=== PATIENT | female | born 1995 | race Two or more races ===

== ENCOUNTER 2016-12-13 04:50 | Observation (INO) | payer MEDICAID, OTHER ==
[~2016-12-13] VITALS: Ht 152.4 cm; Wt 67.1 kg
[2016-12-13 06:42] LABS: Urine Bilirubin Negative (Negative); Urine Blood Negative /uL (Negative); Urine Color Yellow (Yellow); Urine Glucose Normal (Normal); Urine Ketone Negative (Negative); Urine Mucus FEW (None Seen); Urine Nitrite Negative (Negative); Urine RBC 1 /hpf (0 - 4); Urine Squamous Epithelial Cell MANY /hpf (<5)
[2016-12-13] MEDS ORDERED: TERBUTALINE SULFATE 1 MG/ML 1ML VIAL SC ONE ×2 (07:30→07:45)
== END 2016-12-13 08:40 | disposition home or self-care (01) | DRG 566 ==
LOC: LDRP 04:50
PROVIDERS: ADMIT Obstetrics & Gynecology; ATTEND Obstetrics & Gynecology
DX: O62.9 Abnormality of forces of labor, unspecified (principal); Z3A.00 Weeks of gestation of pregnancy not specified
CPT/HCPCS: 59025; 80307; 81001; 81002; 87086; G0378; J3105; 96361; 96366

== ENCOUNTER 2016-12-27 08:00 | Observation (INO) | payer MEDICAID ==
[~2016-12-27] VITALS: Ht 152.4 cm; Wt 68.9 kg
[2016-12-27] MEDS ORDERED: LACTATED RINGER'S 1,000 ML IV ONE (09:15)
[2016-12-27] MEDS ORDERED: NALBUPHINE HCL 10 MG/1ml INJECTION IV ONE (10:00)
[2016-12-27 10:17] LABS: Basophils # (auto) 0 uL; Basophils % (auto) 0.4 % (0.0-2.0); DEFINITIVE VIEW TRANSMISSION; Eosinophils # (auto) 0.1 uL; Eosinophils % (auto) 0.7 % (0.0-7.0); Hemoglobin 10.1 g/dL (12.2-16.2); Lymphocytes # (auto) 1.3 uL; Lymphocytes % (auto) 15.7 % (10.0-50.0); Mean Corpuscular Hgb Conc. 31.6 g/dL (32.0-36.0); Mean Corpuscular Volume 75.7 fL (80.0-100.0); Mean Platelet Volume 8.2 fL (7.4-10.4); Monocytes # (auto) 0.5 uL; Monocytes % (auto) 6.8 % (0.0-12.0); Neutrophils # (auto) 6.2 uL; Neutrophils % (auto) 76.4 % (37.0-80.0); Platelet Count (auto) 243 10^3/uL (140-450); Red Cell Distribution Width 15.7 % (11.6-16.0); SUSPECT VIEW TRANSMISSION; White Blood Cell 8.1 10^3/uL (4.4-10.8)
[2016-12-27 10:59] LABS: INR 0.92 (0.9-1.15); Partial Thromboplastin Time 26.6 sec (22.64-33.71); Prothrombin Time 9.9 sec (9.37-12.3)
[2016-12-27 11:05] LABS: Albumin 2.4 g/dL (3.4-5.0); Bilirubin, Total 0.4 mg/dL (0.2-1.0); Calcium 8.2 mg/dL (8.5-10.1); Potassium 3.7 mmol/L (3.5-5.1); Total Protein 6.6 g/dL (6.4-8.2)
[2016-12-27 12:48] LABS: Urine Bilirubin Negative (Negative); Urine Blood Negative /uL (Negative); Urine Color Yellow (Yellow); Urine Glucose Normal (Normal); Urine Ketone Negative (Negative); Urine Mucus FEW (None Seen); Urine Nitrite Negative (Negative); Urine RBC 3 /hpf (0 - 4); Urine Squamous Epithelial Cell MOD /hpf (<5); Urine Urobilinogen Normal (Negative)
== END 2016-12-27 19:03 | disposition home or self-care (01) | DRG 566 ==
LOC: LDRP 08:00
PROVIDERS: ADMIT Obstetrics & Gynecology; ATTEND Obstetrics & Gynecology
DX: O62.9 Abnormality of forces of labor, unspecified (principal); Z87.891 Personal history of nicotine dependence; Z3A.37 37 weeks gestation of pregnancy
CPT/HCPCS: 36415; 59025; 76805; 76818; 80053; 80307; 81001; 81002; 85025; 85610; 85730; 86850; 86900; 86901; 96361; 96374; G0378; J2300; 96365; 96366

== ENCOUNTER 2016-12-30 10:30 | Observation (INO) | payer MEDICAID ==
[~2016-12-30] VITALS: Ht 152.4 cm; Wt 64.9 kg
[2016-12-30 11:43] LABS: Urine Bilirubin Negative (Negative); Urine Blood Negative /uL (Negative); Urine Color Yellow (Yellow); Urine Glucose Normal (Normal); Urine Ketone Negative (Negative); Urine Nitrite Negative (Negative); Urine RBC 2 /hpf (0 - 4); Urine Squamous Epithelial Cell MOD /hpf (<5); Urine Urobilinogen Normal (Negative); Urine pH 7.5 (5.0-8.0)
[2016-12-30] MEDS ORDERED: SODIUM CHLORIDE 0.9% 1,000 ML IV ONE (12:00)
[2016-12-30] MEDS ORDERED: cefTRIAXone 1GM/50ML D5W 50 ML IV ONE (12:00)
== END 2016-12-30 14:35 | disposition home or self-care (01) | DRG 566 ==
LOC: LDRP 10:30
PROVIDERS: ADMIT Specialist; ATTEND Specialist
DX: O62.9 Abnormality of forces of labor, unspecified (principal); O23.43 Unspecified infection of urinary tract in pregnancy, third trimester; Z87.891 Personal history of nicotine dependence; Z3A.37 37 weeks gestation of pregnancy
CPT/HCPCS: 59025; 81001; 81002; 96365; G0378; J0696; J7030; 96366

== ENCOUNTER 2017-01-01 14:50 | Inpatient (IN) | payer MEDICAID ==
[~2017-01-01] VITALS: Ht 30.5 cm; Wt 0.5 kg
[2017-01-01] MEDS: LACTATED RINGER'S 1,000 ML IV SCH (09:45)
[2017-01-01] MEDS ORDERED: ACETAMINOPHEN/CODEINE#3 (300/30mg) TAB PO ONE (15:30)
[2017-01-01 18:46] LABS: Basophils # (auto) 0 uL; Basophils % (auto) 0.4 % (0.0-2.0); DEFINITIVE VIEW TRANSMISSION; Eosinophils # (auto) 0.1 uL; Eosinophils % (auto) 0.5 % (0.0-7.0); Hematocrit 29.7 % (36.0-46.0); Hemoglobin 9.6 g/dL (12.2-16.2); Lymphocytes # (auto) 1.9 uL; Lymphocytes % (auto) 19.8 % (10.0-50.0); Mean Corpuscular Hemoglobin 24.6 pg (28.0-32.0); Mean Corpuscular Hgb Conc. 32.3 g/dL (32.0-36.0); Mean Corpuscular Volume 76.2 fL (80.0-100.0); Mean Platelet Volume 8.4 fL (7.4-10.4); Monocytes # (auto) 0.7 uL; Neutrophils # (auto) 7.1 uL; Neutrophils % (auto) 72.3 % (37.0-80.0); Platelet Count (auto) 267 10^3/uL (140-450); White Blood Cell 9.8 10^3/uL (4.4-10.8)
[2017-01-01 19:04] LABS: Albumin 2.4 g/dL (3.4-5.0); Calcium 8.2 mg/dL (8.5-10.1); Potassium 3.6 mmol/L (3.5-5.1)
[2017-01-01 19:06] LABS: BUN/Creatinine Ratio 13.5
[2017-01-01 19:08] LABS: INR 0.93 (0.9-1.15); Partial Thromboplastin Time 27.1 sec (22.64-33.71)
[2017-01-01 19:09] LABS: Bilirubin, Total 0.4 mg/dL (0.2-1.0); Total Protein 6.4 g/dL (6.4-8.2)
[2017-01-01 20:23] LABS: Urine RBC None Seen /hpf (0 - 4)
[2017-01-01 20:34] LABS: Urine Bilirubin Negative (Negative); Urine Blood Negative /uL (Negative); Urine Color Colorless (Yellow); Urine Glucose Normal (Normal); Urine Nitrite Negative (Negative); Urine Squamous Epithelial Cell FEW /hpf (<5); Urine Urobilinogen Normal (Negative); Urine pH 6.5 (5.0-8.0)
[2017-01-01 20:59] LABS: Urine Ketone 1+ (Negative)
[2017-01-01] MEDS ORDERED: LACT. RINGERS/OXYTOCIN 20UNITS 1,000 ML IV SCH (21:33)
[2017-01-01] MEDS ORDERED: LIDOCAINE 2%HCL (LOCAL ANESTH.) INJ 20ML MDV IJ ONE ×2 (21:45)
[2017-01-01] MEDS ORDERED: METHYLERGONOVINE MALEATE 0.2 MG/ML AMP IM PRN (21:45)
[2017-01-01] MEDS ORDERED: PHISODERM TOP SOLN 240ML BTL TOP PRN (21:45)
[2017-01-01] MEDS ORDERED: CARBOPROST TROMETHAMINE 250 MCG/1ML VIAL IM PRN (21:45)
[2017-01-01] MEDS ORDERED: WITCH HAZEL-GLYCERIN PAD TOP PRN (21:45)
[2017-01-01] MEDS ORDERED: PROMETHAZINE HCL 25 MG/ML 1ML ONE (23:01)
[2017-01-01] MEDS ORDERED: DERMOPLAST 60ML BOTTLE TOP ONE (23:01)
[2017-01-01] MEDS: NALBUPHINE HCL 10 MG/1ml INJECTION IV PRN (23:19)
[2017-01-02] MEDS ORDERED: fentaNYL CITRATE 100 MCG/2 ML VL IV ONE (01:15)
[2017-01-02] MEDS ORDERED: ePHEDrine SULFATE 50 MG/ML AMP IV ONE ×2 (01:15)
[2017-01-02] MEDS ORDERED: NALOXONE HCL 0.4 MG/ML VIAL IV ONE ×2 (01:15)
[2017-01-02] MEDS ORDERED: fentaNYL W ROPIVACAINE 150 ML EPI SCH (01:15)
[2017-01-02] MEDS ORDERED: LIDOCAINE HCL 2 %PF INJ 10ML AMP IJ ONE (01:15)
[2017-01-02] MEDS ORDERED: PROMETHAZINE HCL 25 MG/ML 1ML ONE (03:03)
[2017-01-02] MEDS: NALBUPHINE HCL 10 MG/1ml INJECTION IV PRN ×2 (03:15→05:48)
[2017-01-02] MEDS ORDERED: PROMETHAZINE HCL 25 MG/ML 1ML IV PRN (03:15)
[2017-01-02] MEDS ORDERED: IBUPROFEN 600 MG TAB PO ONE (06:58)
[2017-01-02] MEDS: ACETAMINOPHEN 325 MG TAB PO PRN ×2 (08:25→17:35)
[2017-01-02] MEDS: LACTATED RINGER'S 1,000 ML IV SCH ×3 (10:02→18:02)
[2017-01-02] MEDS ORDERED: NALBUPHINE HCL 10 MG/1ml INJECTION ONE (10:05)
[2017-01-02 12:04] VITALS: BP 96/55
[2017-01-02 12:49] LABS: Basophils # (auto) 0 uL; Basophils % (auto) 0.1 % (0.0-2.0); DEFINITIVE VIEW TRANSMISSION; Eosinophils # (auto) 0 uL; Hemoglobin 8.1 g/dL (12.2-16.2); Lymphocytes # (auto) 1.3 uL; Lymphocytes % (auto) 7.5 % (10.0-50.0); Mean Corpuscular Hemoglobin 24.6 pg (28.0-32.0); Mean Corpuscular Hgb Conc. 32.5 g/dL (32.0-36.0); Mean Corpuscular Volume 75.6 fL (80.0-100.0); Mean Platelet Volume 8.4 fL (7.4-10.4); Monocytes # (auto) 1.1 uL; Monocytes % (auto) 6.5 % (0.0-12.0); Neutrophils # (auto) 14.4 uL; Neutrophils % (auto) 85.9 % (37.0-80.0); Platelet Count (auto) 239 10^3/uL (140-450); White Blood Cell 16.7 10^3/uL (4.4-10.8)
[2017-01-02] MEDS: IBUPROFEN 600 MG TAB PO PRN ×2 (15:22→22:40)
[2017-01-02 16:06] VITALS: BP 103/52
[2017-01-02 19:15] VITALS: BP 99/59
[2017-01-02] MEDS ORDERED: AMMONIA 0.33 ML INHALANT IN ONE (22:15)
[2017-01-02 22:30] VITALS: BP 97/59
[2017-01-03] VITALS (12 sets, daily range): BP systolic 82–116; BP diastolic 50–72
[2017-01-03] MEDS: LACTATED RINGER'S 1,000 ML IV SCH ×2 (02:02→10:02)
[2017-01-03] MEDS: IBUPROFEN 600 MG TAB PO PRN ×3 (03:24→22:05)
[2017-01-03] MEDS ORDERED: PRENATAL VITAMIN TAB PO ONE (05:45)
[2017-01-03 07:30] LABS: Basophils # (auto) 0.1 uL; Basophils % (auto) 0.9 % (0.0-2.0); DEFINITIVE VIEW TRANSMISSION; Eosinophils # (auto) 0.1 uL; Eosinophils % (auto) 0.5 % (0.0-7.0); Hematocrit 18.4 % (36.0-46.0); Lymphocytes # (auto) 1.8 uL; Lymphocytes % (auto) 17.4 % (10.0-50.0); Mean Corpuscular Hemoglobin 24.8 pg (28.0-32.0); Mean Corpuscular Hgb Conc. 32.6 g/dL (32.0-36.0); Mean Corpuscular Volume 75.9 fL (80.0-100.0); Mean Platelet Volume 8.7 fL (7.4-10.4); Monocytes # (auto) 0.6 uL; Monocytes % (auto) 5.8 % (0.0-12.0); Neutrophils # (auto) 7.7 uL; Neutrophils % (auto) 75.4 % (37.0-80.0); Platelet Count (auto) 181 10^3/uL (140-450); Red Cell Distribution Width 17.2 % (11.6-16.0); White Blood Cell 10.2 10^3/uL (4.4-10.8)
[2017-01-03] MEDS: FERROUS SULFATE 325 MG TAB PO SCH ×2 (08:00→17:47)
[2017-01-03] MEDS: ACETAMINOPHEN 325 MG TAB PO PRN (12:50)
[2017-01-04 03:30] VITALS: BP 93/52
[2017-01-04] MEDS: IBUPROFEN 600 MG TAB PO PRN (06:05)
[2017-01-04 06:08] LABS: Basophils # (auto) 0 uL; Basophils % (auto) 0.4 % (0.0-2.0); DEFINITIVE VIEW TRANSMISSION; Eosinophils # (auto) 0.2 uL; Eosinophils % (auto) 1.8 % (0.0-7.0); Hematocrit 27.8 % (36.0-46.0); Hemoglobin 9.2 g/dL (12.2-16.2); Lymphocytes # (auto) 2.5 uL; Lymphocytes % (auto) 23.1 % (10.0-50.0); Mean Corpuscular Hemoglobin 26.6 pg (28.0-32.0); Mean Corpuscular Hgb Conc. 33.2 g/dL (32.0-36.0); Mean Corpuscular Volume 80.4 fL (80.0-100.0); Mean Platelet Volume 8.2 fL (7.4-10.4); Monocytes # (auto) 0.6 uL; Monocytes % (auto) 5.3 % (0.0-12.0); Neutrophils # (auto) 7.4 uL; Neutrophils % (auto) 69.4 % (37.0-80.0); Platelet Count (auto) 240 10^3/uL (140-450); Red Cell Distribution Width 18.3 % (11.6-16.0); White Blood Cell 10.7 10^3/uL (4.4-10.8)
[2017-01-04 08:00] VITALS: BP 104/57
[2017-01-04] MEDS: FERROUS SULFATE 325 MG TAB PO SCH (08:00)
[2017-01-04 12:00] VITALS: BP 106/53
== END 2017-01-04 13:00 | disposition home or self-care (01) | DRG 560 ==
LOC: LDRP 14:50 → OBSVTOIN 14:50
PROVIDERS: ADMIT Specialist; ATTEND Specialist
PROC: 10E0XZZ Delivery of Products of Conception, External Approach (ICD-10-PCS; principal; 2017-01-02)
PROC: 10907ZC Drainage of Amniotic Fluid, Therapeutic from Products of Conception, Via Natural or Artificial Opening (ICD-10-PCS; 2017-01-02)
PROC: 30233N1 Transfusion of Nonautologous Red Blood Cells into Peripheral Vein, Percutaneous Approach (ICD-10-PCS; 2017-01-03)
DX: O76 Abnormality in fetal heart rate and rhythm complicating labor and delivery (principal); O72.1 Other immediate postpartum hemorrhage; Z91.018 Allergy to other foods; Z37.0 Single live birth; Z3A.37 37 weeks gestation of pregnancy
CPT/HCPCS: 36415; 36430; 59025; 59409; 76818; 80053; 80307; 81001; 85025; 85610; 85730; 86850; 86900; 86901; 86920; 96361; 96366; 96374; 96375; J2590; J3010

== ENCOUNTER 2020-03-31 16:05 | Emergency (ER) | payer MEDICAID ==
[~2020-03-31] VITALS: Ht 154.9 cm; Wt 65.8 kg
[2020-03-31 16:15] VITALS: BP 95/50
[2020-03-31] MEDS ORDERED: ACETAMINOPHEN 500 MG TAB PO ONE (17:30)
== END 2020-03-31 17:54 | disposition home or self-care (01) ==
LOC: ER 16:05
DX: O26.891 Other specified pregnancy related conditions, first trimester (principal); M54.42 Lumbago with sciatica, left side; O99.511 Diseases of the respiratory system complicating pregnancy, first trimester; J45.909 Unspecified asthma, uncomplicated; Z3A.11 11 weeks gestation of pregnancy

== ENCOUNTER 2020-05-01 20:57 | Emergency (ER) | payer MEDICAID ==
[~2020-05-01] VITALS: Ht 152.4 cm; Wt 64.0 kg
[2020-05-01 22:04] LABS: Albumin 3.4 g/dL (3.4-5.0); Potassium 3.3 mmol/L (3.5-5.1)
[2020-05-01 22:07] LABS: BUN/Creatinine Ratio 8.3; Bilirubin, Total 0.6 mg/dL (0.2-1.0); Total Protein 7.8 g/dL (6.4-8.2)
[2020-05-01 22:14] LABS: Basophils # (auto) 0 10 ^3/uL (0-0.2); Basophils % (auto) 0.1 % (0.0-2.0); Eosinophils # (auto) 0 10 ^3/uL (0-0.8); Eosinophils % (auto) 0.4 % (0.0-7.0); Hematocrit 39.5 % (36.0-46.0); Hemoglobin 13.3 g/dL (12.2-16.2); Lymphocytes # (auto) 1.1 10 ^3/uL (0.4-5.4); Lymphocytes % (auto) 9.8 % (10.0-50.0); Mean Corpuscular Hemoglobin 29.6 pg (28.0-32.0); Mean Corpuscular Hgb Conc. 33.8 g/dL (32.0-36.0); Mean Corpuscular Volume 87.6 fL (80.0-100.0); Monocytes # (auto) 0.7 10 ^3/uL (0-1.3); Monocytes % (auto) 6.3 % (0.0-12.0); Neutrophils # (auto) 9.4 10 ^3/uL (1.6-8.6); Neutrophils % (auto) 83.4 % (37.0-80.0); Platelet Count (auto) 204 10^3/uL (140-450); Red Blood Cells 4.51 10^6/uL (4.0-5.20); Red Cell Distribution Width 13.6 % (11.8-14.3); White Blood Cell 11.3 10^3/uL (4.4-10.8)
[2020-05-01] MEDS ORDERED: SODIUM CHLORIDE 0.9% 1,000 ML IV ONE (23:00)
[2020-05-02] MEDS ORDERED: ACETAMINOPHEN 500 MG TAB PO ONE (00:30)
[2020-05-02] MEDS: ONDANSETRON HCL 4 MG/2 ML VIAL IV ONE ×2 (00:39→01:29)
[2020-05-02 01:00] LABS: Urine Bacteria FEW /hpf (None Seen); Urine Blood Negative /uL (Negative); Urine Specific Gravity 1.005 (1.001-1.035); Urine WBC 2 /hpf (0 - 5)
[2020-05-02] MEDS ORDERED: SODIUM CHLORIDE 0.9% 1,000 ML IV ONE (01:30)
[2020-05-02 02:00] VITALS: BP 97/47
== END 2020-05-02 02:40 | disposition home or self-care (01) ==
LOC: ER 21:04
DX: O23.42 Unspecified infection of urinary tract in pregnancy, second trimester (principal); O21.9 Vomiting of pregnancy, unspecified; Z3A.15 15 weeks gestation of pregnancy
CPT/HCPCS: 36415; 76805; 80053; 81001; 82150; 83690; 84702; 85025; 96361; 96374; 99284; J2405; J7030

== ENCOUNTER 2020-06-30 15:31 | Inpatient (IN) | payer MEDICAID ==
[~2020-06-30] VITALS: Ht 152.4 cm; Wt 63.5 kg
[2020-06-30 15:50] VITALS: BP 113/70
[2020-06-30] MEDS ORDERED: ACETAMINOPHEN 325 MG TAB PO ONE (16:15)
[2020-06-30] MEDS ORDERED: LACTATED RINGER'S 1,000 ML IV ONE (17:00)
[2020-06-30 18:35] LABS: Urine Bacteria MOD /hpf (None Seen); Urine Blood Negative /uL (Negative); Urine Specific Gravity 1.016 (1.001-1.035); Urine WBC 79 /hpf (0 - 5)
[2020-06-30 18:42] LABS: Alcohol, Urine < 3.0 mg/dL (0-10); Amphetamine Screen, Urine NEGATIVE (NEGATIVE); Barbiturate Scree,Urine NEGATIVE (NEGATIVE); Benzodiazephine Screen, Urine NEGATIVE (NEGATIVE); Cannabinoid Screen, Urine NEGATIVE (NEGATIVE); Cocaine Screen, Urine NEGATIVE (NEGATIVE); Opiate Scree,Urine NEGATIVE (NEGATIVE); Phencyclidine Screen, Urine NEGATIVE (NEGATIVE)
[2020-06-30] MEDS ORDERED: NIFEdipine 10 MG CAP PO ONE (18:45)
[2020-06-30] MEDS ORDERED: MEPERIDINE HCL (50 MG/ML) 1 ML VIAL IV PRN (20:30)
[2020-06-30] MEDS ORDERED: MAGNESIUM SULFATE 100 ML IV ONE (20:30)
[2020-06-30] MEDS ORDERED: CEFTRIAXONE SODIUM 2 GM in D5W 5% 50 ML IV ONE (20:30)
[2020-06-30] MEDS ORDERED: BETAMETHASONE ACET (6MG/ML) 5ML VIAL IM SCH (21:00)
[2020-06-30] MEDS: MAGNESIUM SULFATE 40MG/ML 1,000 ML IV SCH ×2 (22:05→22:29)
[2020-06-30 23:02] LABS: Potassium 3.5 mmol/L (3.5-5.1)
[2020-06-30 23:09] LABS: Albumin 2.5 g/dL (3.4-5.0); Bilirubin, Total 0.6 mg/dL (0.2-1.0); Calcium 7.9 mg/dL (8.5-10.1); Total Protein 5.9 g/dL (6.4-8.2)
[2020-07-01 00:13] LABS: Basophils # (auto) 0 10 ^3/uL (0-0.2); Basophils % (auto) 0.2 % (0.0-2.0); Eosinophils # (auto) 0 10 ^3/uL (0-0.8); Eosinophils % (auto) 0.1 % (0.0-7.0); Hematocrit 35.3 % (36.0-46.0); Hemoglobin 11.9 g/dL (12.2-16.2); Lymphocytes % (auto) 6.1 % (10.0-50.0); Mean Corpuscular Hemoglobin 29.4 pg (28.0-32.0); Mean Corpuscular Hgb Conc. 33.8 g/dL (32.0-36.0); Mean Corpuscular Volume 86.9 fL (80.0-100.0); Neutrophils # (auto) 15.1 10 ^3/uL (1.6-8.6); Neutrophils % (auto) 87.6 % (37.0-80.0); Nucleated Red Blood Cells % 0.1 %; Platelet Count (auto) 170 10^3/uL (140-450); Red Blood Cells 4.06 10^6/uL (4.0-5.20); Red Cell Distribution Width 14.1 % (11.8-14.3); White Blood Cell 17.3 10^3/uL (4.4-10.8)
[2020-07-01 00:27] LABS: INR 0.92 (0.9-1.15); Partial Thromboplastin Time 26.8 sec (23.0-31.2)
[2020-07-01] MEDS: ONDANSETRON HCL 4 MG/2 ML VIAL IV PRN (01:17)
[2020-07-01] MEDS ORDERED: MAGNESIUM SULFATE 40MG/ML 1,000 ML IV SCH (03:15)
[2020-07-01] MEDS ORDERED: AZITHROMYCIN 500MG/ 250ML 250 ML IV SCH (04:00)
[2020-07-01] MEDS: LACTATED RINGER'S 1,000 ML IV SCH ×4 (06:53→16:12)
[2020-07-01] MEDS ORDERED: cefTRIAXone 1GM/50ML D5W 50 ML IV SCH ×2 (09:00→22:00)
[2020-07-01] MEDS ORDERED: TERBUTALINE SULFATE 1 MG/ML 1ML VIAL SC PRN (09:45)
[2020-07-01] MEDS: ASCORBIC ACID 500 MG TAB PO SCH (10:00)
[2020-07-01] MEDS: ZINC SULFATE 220mg CAP or TAB PO SCH (10:02)
[2020-07-01] MEDS ORDERED: ACETAMINOPHEN 325 MG TAB PO PRN (20:30)
[2020-07-01] MEDS ORDERED: FAMOTIDINE 20 MG TAB ONE (21:30)
[2020-07-01] MEDS: FAMOTIDINE 20 MG TAB PO SCH (21:42)
[2020-07-01] MEDS ORDERED: BETAMETHASONE ACET (6MG/ML) 5ML VIAL IM ONE (22:00)
[2020-07-02] MEDS: LACTATED RINGER'S 1,000 ML IV SCH (02:11)
[2020-07-02] MEDS ORDERED: AZITHROMYCIN 500MG/ 250ML 250 ML IV ONE (03:48)
[2020-07-02] MEDS: AZITHROMYCIN 500MG/ 250ML 250 ML IV SCH ×2 (04:06→10:00)
[2020-07-02] MEDS: ONDANSETRON HCL 4 MG/2 ML VIAL IV PRN (06:39)
[2020-07-02 07:42] LABS: Basophils # (auto) 0 10 ^3/uL (0-0.2); Basophils % (auto) 0.1 % (0.0-2.0); Eosinophils # (auto) 0 10 ^3/uL (0-0.8); Hematocrit 35.4 % (36.0-46.0); Hemoglobin 11.7 g/dL (12.2-16.2); Lymphocytes # (auto) 1.2 10 ^3/uL (0.4-5.4); Lymphocytes % (auto) 7.2 % (10.0-50.0); Mean Corpuscular Hemoglobin 29.8 pg (28.0-32.0); Monocytes # (auto) 0.5 10 ^3/uL (0-1.3); Monocytes % (auto) 2.8 % (0.0-12.0); Neutrophils # (auto) 15.4 10 ^3/uL (1.6-8.6); Neutrophils % (auto) 89.9 % (37.0-80.0); Platelet Count (auto) 178 10^3/uL (140-450); Red Blood Cells 3.93 10^6/uL (4.0-5.20); Red Cell Distribution Width 14.6 % (11.8-14.3); White Blood Cell 17.2 10^3/uL (4.4-10.8)
[2020-07-02 07:44] LABS: BUN/Creatinine Ratio 12.5
[2020-07-02] MEDS: ASCORBIC ACID 500 MG TAB PO SCH (09:41)
[2020-07-02] MEDS: FAMOTIDINE 20 MG TAB PO SCH (09:41)
[2020-07-02] MEDS: ZINC SULFATE 220mg CAP or TAB PO SCH (09:42)
[2020-07-02] MEDS ORDERED: CHOLECALCIFEROL (VITD3) 1,000UNIT=25mCg TAB PO SCH (10:00)
[2020-07-02] MEDS ORDERED: ASCO500T11 PO (13:17)
[2020-07-02] MEDS ORDERED: CHOL1000 PO (13:17)
[2020-07-02] MEDS ORDERED: DOXY-346 PO (13:17)
[2020-07-02] MEDS ORDERED: FAMO-12 PO (13:17)
== END 2020-07-02 13:55 | disposition home or self-care (01) | DRG 566 ==
LOC: ER 15:31 → LDRP 16:24 → OBSVTOIN 16:24 → LDRP 22:52
PROVIDERS: ADMIT Specialist; ATTEND Specialist
DX: O98.512 Other viral diseases complicating pregnancy, second trimester (principal); O23.42 Unspecified infection of urinary tract in pregnancy, second trimester; J45.909 Unspecified asthma, uncomplicated; O26.832 Pregnancy related renal disease, second trimester; O99.512 Diseases of the respiratory system complicating pregnancy, second trimester; O44.02 Complete placenta previa NOS or without hemorrhage, second trimester; U07.1 COVID-19; O60.02 Preterm labor without delivery, second trimester; Z3A.24 24 weeks gestation of pregnancy; Z87.440 Personal history of urinary (tract) infections; Z87.442 Personal history of urinary calculi; Z91.018 Allergy to other foods
CPT/HCPCS: 36415; 59025; 76700; 76705; 76805; 80048; 80053; 80307; 81001; 83735; 85025; 85610; 85730; 87040; 87086; 87426; 94760; 96360; 96361; 96365; 96366; 96372; 96374; 96375; G0378; J0696; J2405; J7060

== ENCOUNTER 2020-09-16 22:05 | Observation (INO) | payer MEDICAID ==
[~2020-09-16 22:05] MED LIST: ASCO500T11 PO; CHOL1000 PO; DOXY-346 PO; FAMO-12 PO
[2020-09-16] MEDS ORDERED: LACTATED RINGER'S 1,000 ML IV ONE (22:30)
[2020-09-16] MEDS ORDERED: TERBUTALINE SULFATE 1 MG/ML 1ML VIAL SC SCH (22:30)
[2020-09-16] MEDS ORDERED: BETAMETHASONE ACET (6MG/ML) 5ML VIAL ONE (22:31)
[2020-09-16] MEDS ORDERED: TERBUTALINE SULFATE 1 MG/ML 1ML VIAL SC ONE (22:32)
[2020-09-16] MEDS: BETAMETHASONE ACET (6MG/ML) 5ML VIAL IM SCH ×2 (22:50→23:12)
[2020-09-16] MEDS ORDERED: NIFEdipine 10 MG CAP PO ONE (23:30)
[2020-09-16] MEDS ORDERED: NIFEdipine 10 MG CAP PO STA (23:34)
== END 2020-09-17 00:13 | disposition home or self-care (01) ==
LOC: LDRP 22:05
PROVIDERS: ADMIT Specialist; ATTEND Specialist
DX: O60.03 Preterm labor without delivery, third trimester (principal); O62.9 Abnormality of forces of labor, unspecified; Z3A.35 35 weeks gestation of pregnancy
CPT/HCPCS: 59025; 81002; 96360; 96372; G0378; J0702; J3105

== ENCOUNTER 2021-12-27 09:52 | Emergency (ER) | payer MEDICAID ==
[~2021-12-27] VITALS: Ht 152.4 cm; Wt 79.8 kg
[~2021-12-27 09:52] MED LIST changes: -CHOL1000 PO; +CHOL1TAB30 PO
[2021-12-27 10:03] VITALS: BP 125/78
[2021-12-27 10:34] LABS: Urine Bacteria FEW /hpf (None Seen); Urine Blood 2+ /uL (Negative); Urine Specific Gravity 1.017 (1.001-1.035); Urine WBC 9 /hpf (0 - 5)
[2021-12-27 10:58] LABS: Basophils # (auto) 0 10 ^3/uL (0-0.2); Basophils % (auto) 0.7 % (0.0-2.0); Eosinophils # (auto) 0.1 10 ^3/uL (0-0.8); Eosinophils % (auto) 1.4 % (0.0-7.0); Hematocrit 42.9 % (36.0-46.0); Hemoglobin 14.2 g/dL (12.2-16.2); Lymphocytes # (auto) 1.9 10 ^3/uL (0.4-5.4); Lymphocytes % (auto) 31.7 % (10.0-50.0); Mean Corpuscular Hemoglobin 28.7 pg (28.0-32.0); Mean Corpuscular Hgb Conc. 33.1 g/dL (32.0-36.0); Mean Corpuscular Volume 86.7 fL (80.0-100.0); Monocytes # (auto) 0.4 10 ^3/uL (0-1.3); Monocytes % (auto) 5.8 % (0.0-12.0); Neutrophils # (auto) 3.7 10 ^3/uL (1.6-8.6); Neutrophils % (auto) 60.4 % (37.0-80.0); Red Blood Cells 4.95 10^6/uL (4.0-5.20); Red Cell Distribution Width 13.1 % (11.8-14.3); White Blood Cell 6.1 10^3/uL (4.4-10.8)
[2021-12-27 11:14] LABS: BUN/Creatinine Ratio 13.7; Calcium 9.1 mg/dL (8.5-10.1)
[2021-12-27] MEDS ORDERED: HYDR50CA PO (12:51)
== END 2021-12-27 12:59 | disposition home or self-care (01) ==
LOC: ER 09:52
DX: N92.6 Irregular menstruation, unspecified (principal); F41.9 Anxiety disorder, unspecified; J45.909 Unspecified asthma, uncomplicated; Z79.899 Other long term (current) drug therapy; Z91.018 Allergy to other foods
CPT/HCPCS: 36415; 80048; 81001; 84484; 84702; 85025

== ENCOUNTER 2024-12-04 22:26 | Emergency (ER) | payer MEDICAID ==
[~2024-12-04] VITALS: Ht 152.4 cm; Wt 72.1 kg
[~2024-12-04 22:26] MED LIST changes: +HYDR50CA PO
--- NOTE | 2024-12-04 22:50 | ED.PDOC ---
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 Patient is a , unsure if she is currently . States this morning she started having vaginal bleeding, progressively worsening with clots, associated with suprapubic abdominal pain, and lower back pains Chief Complaint: Vaginal Bleed Time Seen by MD: 22:49 Reviewed Notes: Nurses Notes Allergies: Coded Allergies: Mushroom Extract Complex (Verified Allergy, Severe, 06/30/20) Uncoded Allergies: MUSHROOM (Allergy, Severe, 07/29/12) Home Meds Active Scripts Hydroxyzine Pamoate (Vistaril) 50 Mg Cap, 50 MG PO QHSP PRN, #20 CAP Prov:NEGRO HUTCHISON 12/27/21 Doxycycline (Monohydrate) (Doxycycline) 100 Mg Tab, 100 MG PO BID, #10 TAB Prov:KARON NESBITT MD 07/02/20 Famotidine (Famotidine) 20 Mg Tab, 20 MG PO Q12HR, #20 TAB Prov:KARON NESBITT MD 07/02/20 Cholecalciferol (Gnp Vitamin D) 1,000 Unit Tab, 1000 UNIT PO DAILY, #14 TAB Prov:KARON NESBITT MD 07/02/20 Ascorbic Acid (VITAMIN C TABLET) 500 Mg Tb, 500 MG PO DAILY, #14 TAB Prov:KARON NESBITT MD 07/02/20 Information Source: Patient Mode of Arrival: Ambulatory Timing: Hours Severity: Moderate Vaginal Discharge: None Vaginal Lesions: None Bleeding Quality: Bright Red, Clotted Onset Of Mass/Bleeding: Spontaneous Associated Signs and Symptoms: Vaginal Bleeding, Abdominal Pain Past Medical History PAST MEDICAL HISTORY: Anxiety, Asthma, Kidney Stones Surgical History: Denies all surgeries BACK SEWER History: No Pertinent BACK SEWER History 5 Para 4 LMP 10/20/2024 Family History Family History: Reviewed,noncontributory to illness Social History Smoker: Non-Smoker Alcohol: Denies ETOH Use Drugs: Denies Drug Use Lives In: Home Constitutional: denies: chills, diaphoresis, fatigue, fever, malaise, sweats, w eakness, others EENTM: denies: blurred vision, double vision, ear bleeding, ear discharge, ear drainage, ear pain, ear ringing, eye pain, eye redness, hearing loss, mouth pain, mouth swelling, nasal discharge, nose bleeding, nose congestion, nose pain, photophobia, tearing, throat pain, throat swelling, voice changes, others Respiratory: denies: cough, hemoptysis, orthopnea, SOB at rest, shortness of breath, SOB with excertion, stridor, wheezing, others Cardiovascular: denies: chest pain, dizzy spells, diaphoresis, Dyspnea on exertion, edema, irregular heart beat, left arm pain, lightheadedness, palpitations, PND, syncope, others Gastrointestinal: reports: abdominal pain; denies: abdomen distended, blood streaked bowels, constipated, diarrhea, dysphagia, difficulty swallowing, hematemesis, melena, nausea, poor appetite, poor fluid intake, rectal bleeding, rectal pain, vomiting, others Genitourinary: reports: abnormal vagina bleeding; denies: burning, dyspareunia, dysuria, flank pain, frequency, hematuria, incontinence, pain, , vagina discharge, urgency, others Neurological: denies: dizziness, fainting, headache, left sided numbness, left sided weakness, numbness, paresthesia, pre-existing deficit, right sided numbness, right sided weakness, seizure, speech problems, tingling, tremors, weakness, others Musculoskeletal: reports: back pain; denies: gout, joint pain, joint swelling, muscle pain, muscle stiffness, neck pain, others Integumetry: denies: bruises, change in color, change in hair/nails, dryness, laceration, lesions, lumps, rash, wounds, others Allergic/Immunocompromised: denies: Difficulty Healing, Frequent Infections, Hives, Itching, others Hematologic/Lymphatic: denies: anemia, blood clots, easy bleeding, easy bruisin g, swollen glands, others Endocrine: denies: excessive hunger, excessive sweating, excessive thirst, excessive urination, flushing, intolerance to cold, intolerance to heat, unexplained weight gain, unexplained weight loss, others Psychiatric: denies: anxiety, bipolar disorder, depression, hopeless, panic disorder, schizophrenia, sleepless, suicidal, others Physical Exam General Appearance: No Apparent Distress, Normal HEENT: Normal ENT Inspection, Pharynx Normal, TMs Normal Neck: Full Range of Motion, Non-Tender, Normal, Normal Inspection Respiratory: Chest Non-Tender, Lungs Clear, No Accessory Muscle Use, No Respir atory Distress, Normal Breath Sounds Cardiovascular: No Edema, No JVD, No Murmur, No Gallop, Normal Peripheral Pulses, Regular Rate/Rhythm Breast Exam: Deferred Gastrointestinal: No Organomegaly, Non Tender, No Pulsatile Mass, Normal Bowel Sounds, Soft Genitalia: Deferred Pelvic: Deferred Rectal: Deferred Extremities: No calf tenderness, Normal capillary refill, Normal inspection, Normal range of motion, Non-tender, No pedal edema Musculoskeletal : Apperance: Normal Neurologic: Alert, restaurant associate II-XII nml as Tested, No Motor Deficits, Normal Affect, Normal Mood, No Sensory Deficits Cerebellar Function: Normal Reflexes: Normal Skin: Dry, Normal Color, Warm Lymphatic: No Adenopathy Was a procedure done? Was a procedure done?: No Differential Diagnosis (BACK SEWER) Vaginal Bleeding: - Inevitable, - Missed, - Threatened, Blood Loss Anemia, Menstrual Bleeding, UTI X-Ray, Labs, Meds, VS Vital Signs Date Time Temp Pulse Resp B/P (MAP) Pulse Ox O2 Delivery O2 Flow Rate FiO2 12/04/24 22:40 98.3 86 18 108/84 (92) 97 98.3 Lab Test 12/04/24 22:50 12/04/24 22:40 Range/Units White Blood Count 7.3 4.4-10.8 10^3/uL Red Blood Count 4.74 4.0-5.20 10^6/uL Hemoglobin 14.2 12.2-16.2 g/dL Hematocrit 41.5 36.0-46.0 % Mean Corpuscular Volume 87.5 80.0-100.0 fL Mean Corpuscular Hemoglobin 29.9 28.0-32.0 pg Mean Corpuscular Hemoglobin Concent 34.1 32.0-36.0 g/dL Red Cell Distribution Width 13.7 11.8-14.3 % Platelet Count 206 140-450 10^3/uL Mean Platelet Volume 8.8 6.9-10.8 fL Neutrophils (%) (Auto) 57.5 37.0-80.0 % Lymphocytes (%) (Auto) 33.1 10.0-50.0 % Monocytes (%) (Auto) 6.6 0.0-12.0 % Eosinophils (%) (Auto) 2.3 0.0-7.0 % Basophils (%) (Auto) 0.5 0.0-2.0 % Neutrophils # (Auto) 4.2 1.6-8.6 10 ^3/uL Lymphocytes # (Auto) 2.4 0.4-5.4 10 ^3/uL Monocytes # (Auto) 0.5 0-1.3 10 ^3/uL Eosinophils # (Auto) 0.2 0-0.8 10 ^3/uL Basophils # (Auto) 0 0-0.2 10 ^3/uL Nucleated Red Blood Cells 0.1 % Sodium Level 139 136-145 mmol/L Potassium Level 3.7 3.5-5.1 mmol/L Chloride Level 105 98-107 mmol/L Carbon Dioxide Level 27 20-31 mmol/L Anion Gap 7 5-15 Blood Urea Nitrogen 13 9-23 mg/dL Creatinine 0.92 0.550-1.02 mg/dL Glomerular Filtration Rate Calc 86 >90 mL/min BUN/Creatinine Ratio 14.1 10.0-20.0 Serum Glucose 122 H 74-106 mg/dL Calcium Level 9.8 8.7-10.4 mg/dL Urine Color Straw Yellow Urine Clarity Turbid H Clear Urine pH 5.5 5.0-9.0 Urine Specific [place] 1.025 1.001-1.035 Urine Protein Trace H Negative Urine Ketones Negative Negative Urine Blood 3+ H Negative /uL Urine Nitrite Negative Negative Urine Bilirubin Negative Negative Urine Urobilinogen Normal Negative mg/dL Urine Leukocyte Esterase Negative Negative /uL Urine RBC 1715 0 - 4 /hpf Urine Microscopic WBC 2 0-5 /HPF Urine Squamous Epithelial Cells Few <5 /hpf Urine Bacteria Few H None Seen /hpf Urine Mucus Few None Seen Urine Yeast (Budding) Occasional None Seen /hpf Urine Glucose Normal Normal mg/dL Urine Test Negative Negative Time of 1ST Reevaluation: 22:44 Reevaluation 1ST: Unchanged Patient Education/Counseling: Diagnosis, Treatment Family Education/Counseling: No Family Present Departure 1 Departure Time of Disposition: 01:15 (Patient presented with abdominal pain that was concerning for possible appendicits, gastritis, cholecystitis, colitis, gastroenteritis, or orther possible surgical emergency. Data: 1. I ordered and reviewed the result of at least 3 labs including a CBC, BMP, and Urinalysis. 2. I independently interpreted the following tests: CT Abdoment and Pelvis is concerning for benign abdomen .Risk:This patient has a high risk of morbidity due to further diagnostic testing or treatment and may suffer from an acute abdominal process disorder. Fortunately workup reveals benign abdomen and patient can be safely discharged to home with outpatient follow up.) Impression: Primary Impression: Vagina bleeding Disposition: HOME / SELF CARE / HOMELESS Condition: Stable Referrals: FERNANDO MORA DO Additional Instructions: Your workup today was benign. You were referred to OBGYN. Please call for an appointment. You can take tylenol and motrin as needed for pain. If your symptoms worsen or you have any other concerns then please return to the ER. Discharged With: Self Critical Care Note Critical Care Time?: No Stability Stability form required: No Heart Score Heart Score: Heart Score Response (Comments) Value History N/A 0 EKG N/A 0 Age N/A 0 Risk Factors N/A 0 Troponin N/A 0 Total 0 I personally scribed for TEE ZAPATA MD ([email or web address]) on 12/04/24 at 22:50. Electronically submitted by Cristi Thacker ([email or web address]). TEE ZAPATA MD Dec 04, 2024 22:50
[2024-12-04 23:15] LABS: Basophils # (auto) 0 10 ^3/uL (0-0.2); Basophils % (auto) 0.5 % (0.0-2.0); Eosinophils # (auto) 0.2 10 ^3/uL (0-0.8); Eosinophils % (auto) 2.3 % (0.0-7.0); Hematocrit 41.5 % (36.0-46.0); Hemoglobin 14.2 g/dL (12.2-16.2); Lymphocytes # (auto) 2.4 10 ^3/uL (0.4-5.4); Lymphocytes % (auto) 33.1 % (10.0-50.0); Mean Corpuscular Hemoglobin 29.9 pg (28.0-32.0); Mean Corpuscular Hgb Conc. 34.1 g/dL (32.0-36.0); Mean Corpuscular Volume 87.5 fL (80.0-100.0); Monocytes # (auto) 0.5 10 ^3/uL (0-1.3); Monocytes % (auto) 6.6 % (0.0-12.0); Neutrophils # (auto) 4.2 10 ^3/uL (1.6-8.6); Neutrophils % (auto) 57.5 % (37.0-80.0); Nucleated Red Blood Cells % 0.1 %; Platelet Count (auto) 206 10^3/uL (140-450); Red Blood Cells 4.74 10^6/uL (4.0-5.20); Red Cell Distribution Width 13.7 % (11.8-14.3); White Blood Cell 7.3 10^3/uL (4.4-10.8)
[2024-12-04 23:17] LABS: Chloride 105 mmol/L (98-107); Potassium 3.7 mmol/L (3.5-5.1); Sodium 139 mmol/L (136-145)
[2024-12-04 23:18] LABS: Anion Gap 7 (5-15); Carbon Dioxide 27 mmol/L (20-31)
[2024-12-04 23:19] LABS: Calcium 9.8 mg/dL (8.7-10.4)
[2024-12-04 23:23] LABS: BUN/Creatinine Ratio 14.1 (10.0-20.0); Blood Urea Nitrogen 13 mg/dL (9-23)
[2024-12-04 23:23] LABS: Urine Bacteria FEW /hpf (None Seen); Urine Blood 3+ /uL (Negative); Urine Budding Yeast OCCASIONAL /hpf (None Seen); Urine Clarity Turbid (Clear); Urine Color STRAW (Yellow); Urine Mucus FEW (None Seen); Urine Protein, UAD TRACE (Negative); Urine Specific Gravity 1.025 (1.001-1.035); Urine Squamous Epithelial Cell FEW /hpf (<5); Urine Urobilinogen Normal (Negative); Urine WBC 2 /HPF (0-5); Urine pH 5.5 (5.0-9.0)
[2024-12-04 23:24] LABS: Glucose 122 mg/dL (74-106)
--- NOTE | 2024-12-05 01:01 | DVH ---
Exam: CT CT AB PEL WO CON-NO ORAL OR IV History: abdominal pain, vaginal bleeding Comparison Study: None Technique: Multidetector spiral CT of the abdomen was performed from lung bases to pubic symphysis. Imaging was performed without IV contrast. Axial, coronal and sagittal multiplanar reformats were ob tained from the axial data set by the technologist. Radiation Dose : 1. Abdomen/Pelvis: CTDIvol 6.5 mGy, DLP 401 mGy*cm. Findings: Evaluation of solid organs is limited due to lack of intravenous contrast use. Lung Bases: No acute or significant lung base finding. Normal heart size. No pleural or pericardial effusion. Liver: The liver is normal in size. No focal lesions. Gallbladder and Biliary Tree: Unremarkable Spleen: Unremarkable Pancreas: The pancreas is grossly normal in appearance. Adrenal Glands: Unremarkable Kidneys: Kidneys are grossly normal without calculi or hydronephrosis. Bladder: Grossly unremarkable for degree of distention. Bowel: The stomach is grossly normal in appearance. Small bowel and colon are normal in caliber and d istribution. The appendix is not visualized; however, no secondary findings of acute appendicitis id entified. Ascites: Absent Lymphadenopathy: No mesenteric, retroperitoneal or periportal lymphadenopathy. Abdominal Wall and Mesentery: Unremarkable. Vasculature: The visualized abdominal aorta is normal in size and caliber. Evaluation of abdominal a nd pelvic vessels is limited due to lack of intravenous contrast. Pelvic Organs: Unremarkable Musculoskeletal: No aggressive focal bony lesions, acute fractures or dislocation. IMPRESSION: 1. No acute abdominal or pelvic findings. Radiation optimization: All CT scans at this facility use at least one of these dose optimization darlene hniques: automated exposure control mA and/or kV adjustment per patient size (includes targeted exam s where dose is matched to clinical indication) or iterative reconstruction.
[2024-12-05 01:57] VITALS: BP 96/65; PULSE 67; RESP 17; TEMP 98.3; O2SAT 97
== END 2024-12-05 02:01 | disposition home or self-care (01) ==
LOC: ER 22:26
DX: N93.9 Abnormal uterine and vaginal bleeding, unspecified (principal); F41.9 Anxiety disorder, unspecified; J45.909 Unspecified asthma, uncomplicated
CPT/HCPCS: 36415; 74176; 80048; 81001; 81025; 85025; 86900; 86901

== ENCOUNTER 2025-07-02 23:09 | Emergency (ER) | payer MEDICAID ==
[~2025-07-02] VITALS: Ht 152.4 cm; Wt 65.4 kg
[2025-07-02 23:11] VITALS: TEMP 97.7
[2025-07-03 00:48] LABS: Hematocrit 38.7 % (36.0-46.0); Hemoglobin 13.2 g/dL (12.2-16.2); Mean Corpuscular Hemoglobin 30.0 pg (28.0-32.0); Mean Corpuscular Volume 87.8 fL (80.0-100.0); Nucleated Red Blood Cells % 0.0 %
[2025-07-03 01:00] LABS: Alanine Aminotransferase 14 U/L (7-40); Albumin 4.3 g/dL (3.2-4.8); Alkaline Phosphatase 56 U/L (46-116); Anion Gap 13 (5-15); BUN/Creatinine Ratio 8.5 (10.0-20.0); Calcium 9.3 mg/dL (8.7-10.4); Carbon Dioxide 22 mmol/L (20-31); Sodium 142 mmol/L (136-145); Total Protein 7.2 g/dL (5.7-8.2)
[2025-07-03 01:01] LABS: Bilirubin, Total 0.4 mg/dL (0.2-1.0)
[2025-07-03 01:04] LABS: Blood Urea Nitrogen 6 mg/dL (9-23); Chloride 107 mmol/L (98-107); Glucose 130 mg/dL (74-106); Potassium 3.1 mmol/L (3.5-5.1)
--- NOTE | 2025-07-03 01:16 | DVH ---
OB ULTRASOUND <14 WEEKS: HISTORY: CRAMPING TECHNIQUE: Multiple real-time grayscale sonographic images of the pelvis with duplex Doppler color flow, spectral and M-mode analysis. COMPARISON: None FINDINGS: The uterus measures 10.9 x 6.2 x 6.7 cm The cervix is not assessed. Right ovary measures 3.7 x 2.7 x 2.9 cm with normal Doppler color flow. Left ovary measures 2.9 x 1.7 x 2 cm with normal Doppler color flow. IUP single fetus at 8 weeks 3 days average ultrasound age based on mean crown- rump length of 1.6 cm and gestational sac size of 3.6 cm. heart rate: 155 beats per minute. Yolk sac is present with normal morphology. Amniotic fluid appears subjectively normal Ginette-gestational space: No evidence of hemorrhage IMPRESSION: 1. Single intrauterine gestation with cardiac activity meausring at 8 weeks 3 days AUA corresponding to an NUBIA of 02/09/2026. 2. No evidence of gestational complication.
[2025-07-03 01:51] LABS: Urine Protein, UAD Negative (Negative)
[2025-07-03] MEDS ORDERED: CEPH500C PO (02:26)
--- NOTE | 2025-07-03 02:26 | ED.PDOC ---
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 PT IS A&OX4 RR DEEP AND RAPID. PT REPORTS DIZZINESS AND NAUSEA. PATIENT DENIES VAGINAL BLEEDING, OR Chief Complaint: Time Seen by MD: 00:12 Reviewed Notes: Nurses Notes, Medications, Allergies Allergies: Coded Allergies: Mushroom Extract Complex (Verified Allergy, Severe, 06/30/20) Uncoded Allergies: MUSHROOM (Allergy, Severe, 07/29/12) Home Meds Active Scripts Cephalexin Monohydrate (Cephalexin) 500 Mg Cap, 500 MG PO BID for 7 Days, #14 MG Prov:VALARIE NAVARRETE [employer]CH[employer] 07/03/25 Hydroxyzine Pamoate (Vistaril) 50 Mg Cap, 50 MG PO QHSP PRN, #20 CAP Prov:NEGRO HUTCHISON 12/27/21 Doxycycline (Monohydrate) (Doxycycline) 100 Mg Tab, 100 MG PO BID, #10 TAB Prov:KARON NESBITT MD 07/02/20 Famotidine (Famotidine) 20 Mg Tab, 20 MG PO Q12HR, #20 TAB Prov:KARON NESBITT MD 07/02/20 Cholecalciferol (Gnp Vitamin D) 1,000 Unit Tab, 1000 UNIT PO DAILY, #14 TAB Prov:KARON NESBITT MD 07/02/20 Ascorbic Acid (VITAMIN C TABLET) 500 Mg Tb, 500 MG PO DAILY, #14 TAB Prov:KARON NESBITT MD 07/02/20 Information Source: Patient Past Medical History PAST MEDICAL HISTORY: Anxiety, Asthma, Kidney Stones Surgical History: Denies all surgeries REALTY SPECIALIST History: No Pertinent REALTY SPECIALIST History Family History Family History: Reviewed,noncontributory to illness Social History Smoker: Non-Smoker Alcohol: Denies ETOH Use Drugs: Denies Drug Use Lives In: Home All Other Systems: Reviewed and Negative (SEE HPI) Physical Exam General Appearance: No Apparent Distress, Normal HEENT: Normal ENT Inspection, Pharynx Normal, TMs Normal Neck: Full Range of Motion, Non-Tender Respiratory: Lungs Clear, No Respiratory Distress, Normal Breath Sounds Cardiovascular: No Edema, No JVD, No Murmur, No Gallop, Normal Peripheral Pulses, Regular Rate/Rhythm Breast Exam: Deferred Gastrointestinal: No Organomegaly, Non Tender, No Pulsatile Mass, Normal Bowel Sounds, Soft, Other (NEGATIVE CVA TENDERNESS) Genitalia: Deferred Pelvic: Deferred Rectal: Deferred Extremities: Normal capillary refill, Normal range of motion, Non-tender, No pedal edema Musculoskeletal : Apperance: Normal Neurologic: Alert, No Motor Deficits, Normal Affect, Normal Mood, No Sensory Deficits Cerebellar Function: Normal Reflexes: NOT DONE Skin: Dry, Normal Color, Warm Lymphatic: No Adenopathy Was a procedure done? Was a procedure done?: No Differential Diagnosis (REALTY SPECIALIST) Vaginal Bleeding: - Complete, - Incomplete, - Threatened, Abruptio Placentae, Blood Loss Anemia, Ectopic , Placenta Previa, UTI X-Ray, Labs, Meds, VS Vital Signs Date Time Temp Pulse Resp B/P (MAP) Pulse Ox O2 Delivery O2 Flow Rate FiO2 07/02/25 23:11 97.7 80 25 138/85 100 97.7 Lab Test 07/03/25 01:00 07/03/25 00:25 Range/Units Urine Color Light-yellow Yellow Urine Clarity Clear Clear Urine pH 8.0 5.0-9.0 Urine Specific [place] 1.008 1.001-1.035 Urine Protein Negative Negative Urine Ketones 1+ H Negative Urine Blood Negative Negative /uL Urine Nitrite Negative Negative Urine Bilirubin Negative Negative Urine Urobilinogen Normal Negative mg/dL Urine Leukocyte Esterase Negative Negative /uL Urine RBC None seen 0 - 4 /hpf Urine Microscopic WBC 1 0-5 /HPF Urine Squamous Epithelial Cells Few <5 /hpf Urine Bacteria None seen None Seen /hpf Urine Glucose Normal Normal mg/dL Urine Test Positive Negative White Blood Count 11.6 H 4.4-10.8 10^3/uL Red Blood Count 4.40 4.0-5.20 10^6/uL Hemoglobin 13.2 12.2-16.2 g/dL Hematocrit 38.7 36.0-46.0 % Mean Corpuscular Volume 87.8 80.0-100.0 fL Mean Corpuscular Hemoglobin 30.0 28.0-32.0 pg Mean Corpuscular Hemoglobin Concent 34.2 32.0-36.0 g/dL Red Cell Distribution Width 13.3 11.8-14.3 % Platelet Count 211 140-450 10^3/uL Mean Platelet Volume 8.7 6.9-10.8 fL Neutrophils (%) (Auto) 74.6 37.0-80.0 % Lymphocytes (%) (Auto) 19.8 10.0-50.0 % Monocytes (%) (Auto) 4.4 0.0-12.0 % Eosinophils (%) (Auto) 0.9 0.0-7.0 % Basophils (%) (Auto) 0.3 0.0-2.0 % Neutrophils # (Auto) 8.7 H 1.6-8.6 10 ^3/uL Lymphocytes # (Auto) 2.3 0.4-5.4 10 ^3/uL Monocytes # (Auto) 0.5 0-1.3 10 ^3/uL Eosinophils # (Auto) 0.1 0-0.8 10 ^3/uL Basophils # (Auto) 0 0-0.2 10 ^3/uL Nucleated Red Blood Cells 0.0 % Sodium Level 142 136-145 mmol/L Potassium Level 3.1 L 3.5-5.1 mmol/L Chloride Level 107 98-107 mmol/L Carbon Dioxide Level 22 20-31 mmol/L Anion Gap 13 5-15 Blood Urea Nitrogen 6 L 9-23 mg/dL Creatinine 0.71 0.550-1.02 mg/dL Glomerular Filtration Rate Calc 117 >90 mL/min BUN/Creatinine Ratio 8.5 L 10.0-20.0 Serum Glucose 130 H 74-106 mg/dL Calcium Level 9.3 8.7-10.4 mg/dL Total Bilirubin 0.4 0.2-1.0 mg/dL Aspartate Amino Transferase (AST) 18 13-40 U/L Alanine Aminotransferase (ALT) 14 7-40 U/L Alkaline Phosphatase 56 46-116 U/L Total Protein 7.2 5.7-8.2 g/dL Albumin 4.3 3.2-4.8 g/dL Beta HCG, Quantitative 839240.5 H 1.5-4.2 mIU/mL X-Ray, Labs, Meds, VS Comment CBCS CMP WITHIN NORMAL LIMITS. UA POSITIVE FOR INFECTION. OB ULTRASOUND SHOWS NO INTRAUTERINE CONCERNS EIGHT WEEKS GESTATION. PATIENT REPORTS IMPROVEMENT IN SYMPTOMS REQUESTING DISCHARGE AT THIS TIME. TRIAL OF KEFLEX. ADVISED TO REST INCREASE P.O. FLUIDS WITH ELECTROLYTES INCREASE DAILY POTASSIUM. FOLLOW UP WITH HER PCP IN 2-3 DAYS ER RETURN PRECAUTIONS GIVEN PATIENT INDICATES UNDERSTANDING AND AGREES WITH DISCHARGE PLAN OF CARE. Images Reviewed?: Images reviewed and evaluated by me Time of 1ST Reevaluation: 00:12 Reevaluation 1ST: Unchanged Time of 2ND Reevaluation: 02:26 Reevaluation 2ND: Improved Patient Education/Counseling: Diagnosis, Treatment, Need For Follow Up Family Education/Counseling: No Family Present Departure 1 Departure Time of Disposition: 02:26 Impression: Primary Impression: UTI (lower urinary tract infection) Additional Impression: Qualified Codes: Z3A.08 - 8 weeks gestation of Disposition: 01 HOME / SELF CARE / HOMELESS Condition: Stable e-Prescriptions Cephalexin Monohydrate (Cephalexin) 500 Mg Cap 500 MG PO BID for 7 Days, #14 MG Prov: VALARIE NAVARRETE 07/03/25 Discharged With: Self Critical Care Note Critical Care Time?: No Stability Stability form required: VALAIRE Chen Jul 03, 2025 02:26
[2025-07-03 02:30] VITALS: BP 97/42; PULSE 68; RESP 16; O2SAT 100
== END 2025-07-03 02:36 | disposition home or self-care (01) ==
LOC: ER 23:09
DX: O23.41 Unspecified infection of urinary tract in pregnancy, first trimester (principal); O20.0 Threatened abortion; N39.0 Urinary tract infection, site not specified; F41.9 Anxiety disorder, unspecified; R10.20 Pelvic and perineal pain unspecified side; J45.909 Unspecified asthma, uncomplicated; Z3A.08 8 weeks gestation of pregnancy; Z87.442 Personal history of urinary calculi; Z79.899 Other long term (current) drug therapy
CPT/HCPCS: 36415; 76801; 80053; 81001; 81025; 84702; 85025